=== PATIENT | male | born 1950 | race Caucasian/White ===

== ENCOUNTER 2021-02-22 09:27 | Observation (INO) | payer MEDICARE ==
[~2021-02-22] VITALS: Ht 182.9 cm; Wt 74.8 kg
[~2021-02-22 09:27] MED LIST: ASPI325; CYCL1OPSOA OP; MOXI400; OXYACE5T PO; PROACE100; RXOXYACE PO; TOBR.3OPSO OP
[2021-02-22 10:15] LABS: BASOPHILS ABSOLUTE AUTO 0.04 K/mm3 (0.00-0.23); BASOPHILS PERCENT AUTO 0 % (0-2); EOSINOPHILS PERCENT AUTO 0 % (0-6); Hematocrit 44.5 % (37.0-53.0); Hemoglobin 15.1 g/dL (13.5-17.5); IMMATURE GRAN ABSOLUTE AUTO 0.03 K/mm3 (0.00-0.10); IMMATURE GRAN PERCENT AUTO 0 % (0-1); LYMPHOCYTES ABSOLUTE AUTO 0.72 K/mm3 (0.84-5.20); LYMPHOCYTES PERCENT AUTO 6 % (21-46); MONOCYTES ABSOLUTE AUTO 0.26 K/mm3 (0.16-1.47); MONOCYTES PERCENT AUTO 2 % (4-13); Mean Corpuscular HGB 32.9 pg (26.0-34.0); Mean Corpuscular HGB Conc 33.9 g/dL (31.5-36.5); Mean Corpuscular Volume 97 fL (80-100); NEUTROPHILS ABSOLUTE AUTO 10.29 K/mm3 (1.96-9.15); NEUTROPHILS PERCENT AUTO 91 % (41-73); Platelet Count 234 K/mm3 (150-400); RDW Coefficient Variation 11.9 % (11.7-14.2); RDW Standard Deviation 42.7 fL (35.1-46.3); Red Blood Cell Count 4.59 M/mm3 (4.30-5.90); White Blood Cell Count 11.34 K/mm3 (4.00-11.30)
[2021-02-22 10:26] LABS: Alanine Aminotransfer (ALT/SGP 18 U/L (12-78); Albumin, Blood 3.8 g/dL (3.4-5.0); Alk Phos 73 U/L (50-136); Anion Gap 7 mmol/L (6-16); Aspartate Aminotrans (AST/SGOT 14 U/L (12-37); Bilirubin, Total 0.7 mg/dL (0.1-1.0); Blood Urea Nitrogen 12 mg/dL (8-24); Bun/Creatinine Ratio 20.6 (12.0-20.0); CO2, Blood 26 mmol/L (21-32); Calcium, Blood 8.7 mg/dL (8.5-10.1); Chloride, Blood 106 mmol/L (98-108); Creatinine, Blood 0.58 mg/dL (0.60-1.20); Globulin, Blood 3.8 g/dL (2.2-4.0); Glomerular Filtration Rate >60 (60-); Glucose, Blood 163 mg/dL (70-99); Potassium, Blood 3.9 mmol/L (3.5-5.5); Sodium, Blood 139 mmol/L (136-145); Total Protein, Blood 7.6 g/dL (6.4-8.2); Troponin I <0.015 ng/mL (0.000-0.040)
[2021-02-22] MEDS ORDERED: AMLO10 PO (10:56)
--- NOTE | 2021-02-22 16:52 | NUR ---
PT ARRIVED ON FLOOR @1535. PRIMARY COMPLAINT IS VERTIGO. NO MAJOR MEDICAL HX REPORTED. HE IS AA&OX4. HE IS PLEASANT AND COOPERATIVE. PT DENIES PAIN. LCTA ALL FEILDS. PRODUCTIVE COUGH. CLIENT IS A [employer]. NO SKIN ISSUES NOTED REPORTS DIZZINESS AND NAUSEA. 4MG ZOFRAN ADMINISTERED NS STARTED @ 125MLS AND HOUR. IV PATENT RIGHT AC. PT REPORTS HE WOULD LIKE TO REST. CALL LIGHT IN REACH. WILL CONTINUE TO MONITOR UNTILL REPORT GIVEN TO TASIA PEGUERO
--- NOTE | 2021-02-23 03:43 | NUR ---
IP COUNSEL SUMMARY A/OX4, SBA TO BATHROOM. CONTINUES TO HAVE VERTIGO. DENIES N/V AT THIS TIME. NS RUNNING AT 125 ML/HR. TELE IN PLACE, SR IN THE 'S. DENIES PAIN OR SOB. VSS, NO ACUTE CHANGES AT THIS TIME. BED IN LOWEST POSITION WITH CALL LIGHT IN REACH. WILL CONTINUE TO MONITOR AND REPORT TO ONCOMING RN.
[2021-02-23 04:51] LABS: Hematocrit 40.4 % (37.0-53.0); Hemoglobin 13.7 g/dL (13.5-17.5); Mean Corpuscular HGB 33.7 pg (26.0-34.0); Mean Corpuscular HGB Conc 33.9 g/dL (31.5-36.5); Mean Corpuscular Volume 100 fL (80-100); Mean Platelet Volume 8.9 fL (9.1-12.4); Platelet Count 202 K/mm3 (150-400); RDW Coefficient Variation 12.2 % (11.7-14.2); RDW Standard Deviation 44.3 fL (35.1-46.3); Red Blood Cell Count 4.06 M/mm3 (4.30-5.90); White Blood Cell Count 8.84 K/mm3 (4.00-11.30)
[2021-02-23 05:09] LABS: Anion Gap 4 mmol/L (6-16); Blood Urea Nitrogen 11 mg/dL (8-24); Bun/Creatinine Ratio 16.9 (12.0-20.0); CO2, Blood 25 mmol/L (21-32); Calcium, Blood 8.3 mg/dL (8.5-10.1); Chloride, Blood 113 mmol/L (98-108); Creatinine, Blood 0.65 mg/dL (0.60-1.20); Glomerular Filtration Rate >60 (60-); Glucose, Blood 86 mg/dL (70-99); Potassium, Blood 3.7 mmol/L (3.5-5.5); Sodium, Blood 142 mmol/L (136-145)
[2021-02-23] MEDS ORDERED: ASPI81CH PO (15:43)
[2021-02-23] MEDS ORDERED: MECL25 PO (15:45)
--- NOTE | 2021-02-23 16:51 | NUR ---
DISCHARGE SUMMARY PT A/O X4; PLEASANT AND COOPERATIVE WITH CARE. EXPERIENCES VERTIGO AND IS WOBBLY ON HIS FEET AT TIME. WORKED WITH P.T. TODAY AND IT WAS FOUND THAT THE PATIENT HAS ISSUES WITH HIS EQUILIBRIUM AND NEEDS TO FOLLOW UP OUT PATIENT AT THE [facility]. MEDICATIONS FAXED TO PHARMACY BUT PT UNABLE TO PASTING INSPECTOR MEDS UNTIL THURSDAY DUE TO THE PHARMACY CLOSING EARLY. IV AND TELE DC'D WNL. PT WAS DRIVEN HOME BY HIS .
== END 2021-02-23 16:40 | disposition home or self-care (01) ==
LOC: ER 09:27 → MEDS 09:28
PROVIDERS: Emergency Medicine; Nurse Practitioner Acute Care; ADMIT Internal Medicine
DX: R42 Dizziness and giddiness (principal); I10 Essential (primary) hypertension; F17.210 Nicotine dependence, cigarettes, uncomplicated; Z88.0 Allergy status to penicillin
CPT/HCPCS: 36415; 70450; 80048; 80053; 84484; 85025; 85027; 93005; 93010; 96360; 96361; 96374; 97112; 97162; 99285-25; A9270; G0378; J1650; J2405; J7030